=== PATIENT | female | born 1970 | race Caucasian/White ===

== ENCOUNTER 2018-06-15 05:21 | Day surgery (SDC) | payer OTHER ==
[2018-06-08 12:52] LABS: HEMATOCRIT 36.5 % (36.0-47.0); MEAN CORPUSCULAR HEMOGLOBIN 32.9 pg (27.0-33.4); MEAN CORPUSCULAR HGB CONC 35.5 g/dL (32.0-36.0); MEAN CORPUSCULAR VOLUME 93 fl (80-97); PLATELET COUNT 256 10^3/uL (150-450); RED BLOOD COUNT 3.95 10^6/uL (3.72-5.28); RED CELL DISTRIBUTION WIDTH 12.3 % (11.5-14.0); WHITE BLOOD COUNT 4.7 10^3/uL (4.0-10.5)
[2018-06-08 12:57] LABS: APPEARANCE,URINE CLEAR; BILIRUBIN,URINE NEGATIVE (NEGATIVE); COLOR,URINE YELLOW; GLUCOSE, URINE NEGATIVE (NEGATIVE); KETONES,URINE NEGATIVE (NEGATIVE); LEUKOCYTE ESTERASE,URINE NEGATIVE (NEGATIVE); NITRITE,URINE NEGATIVE (NEGATIVE); PROTEIN,URINE NEGATIVE (NEGATIVE); UROBILINOGEN,URINE NEGATIVE mg/dL (<2.0)
[~2018-06-15 05:21] MED LIST: LACTATED RINGERS 1000 ML IV PRN; LIDOCAINE 0.5% INJ-PF (5 MG/ML) 50 ML SDV SUBCUT PRN
[2018-06-15] MEDS ORDERED: SCOPOLAMINE HYDROBROMIDE 1.5 MG PATCH.TD72 ONE (06:28)
[2018-06-15] MEDS ORDERED: ONDANSETRON HCL INJ/PF 4 MG/2 ML SDV ONE (06:29)
[2018-06-15] MEDS ORDERED: SCOPOLAMINE HYDROBROMIDE 1.5 MG PATCH.TD72 TD ONE (07:00)
[2018-06-15] MEDS ORDERED: ONDANSETRON HCL INJ/PF 4 MG/2 ML SDV IV ONE (07:00)
[2018-06-15] MEDS ORDERED: FENTANYL CITRATE INJ/PF 100 MCG/2 ML AMPUL ONE (07:01)
[2018-06-15] MEDS ORDERED: LIDOCAINE 2% INJ (20 MG/ML) 20 ML MDV ONE (07:01)
[2018-06-15] MEDS ORDERED: MIDAZOLAM 2 MG/2 ML INJ ONE (07:02)
[2018-06-15] MEDS ORDERED: ACETAMINOPHEN 1,000 MG/100 ML RTUPB IV ONE (07:03)
[2018-06-15] MEDS ORDERED: PROPOFOL INJ 200 MG/20 ML VIAL IV ONE (07:03)
[2018-06-15] MEDS ORDERED: PROMETHAZINE HCL INJ 25 MG/1 ML VIAL ONE (07:14)
[2018-06-15] MEDS ORDERED: FENTANYL CITRATE INJ/PF 100 MCG/2 ML AMPUL IV PRN ×3 (07:40)
[2018-06-15] MEDS ORDERED: DIPHENHYDRAMINE HCL 50 MG/ML VIAL IV PRN (07:40)
[2018-06-15] MEDS ORDERED: PROMETHAZINE HCL INJ 25 MG/1 ML VIAL IV PRN (07:40)
[2018-06-15] MEDS ORDERED: ONDANSETRON HCL INJ/PF 4 MG/2 ML SDV IV PRN (07:40)
[2018-06-15] MEDS ORDERED: MEPERIDINE HCL/PF INJ 25 MG/1 ML DISP.SYRIN IV PRN (07:40)
[2018-06-15] MEDS ORDERED: MORPHINE SULFATE 10 MG/ML INJ IV PRN (07:40)
[2018-06-15] MEDS ORDERED: HYDROMORPHONE HCL 2 MG TABLET PO PRN (08:49)
[2018-06-15] MEDS ORDERED: ONDANSETRON HCL 8 MG TABLET PO PRN (08:50)
[2018-06-15 09:51] VITALS: BP 102/68
[2018-06-15] MEDS ORDERED: DEXAMETHASONE SOD PHOSPHATE INJ 4 MG/1 ML VIAL ONE (12:10)
[2018-06-15] MEDS ORDERED: KETOROLAC TROMETHAMINE 60 MG/2 ML SDV ONE (12:10)
[2018-06-15] MEDS ORDERED: IBUPROFEN 800 MG TABLET PO SCH (14:00)
--- NOTE | 2018-06-15 15:33 | OPERATIVE REPORT E ---
Operative Report NAME: NIKI DAILY : 1970 AGE: 47Y DATE OF SURGERY: 06/15/2018 ROOM: PREOPERATIVE DIAGNOSIS: MIREYA. POSTOPERATIVE DIAGNOSIS: MIREYA. OPERATION: TVT. ESTIMATED BLOOD LOSS: Less than 5 mL. SURGEON: Sudha BRIONES M.D. ANESTHESIA: General. TISSUE REMOVED OR ALTERED: None. PROCEDURE: The patient was placed in the dorsal lithotomy position, prepped and draped in sterile fashion. Vaginal mucosa was grasped below the urethra and with sharp dissection, vesicovaginal tissue was bluntly and sharply divided to the posterior aspect of the symphysis could be palpated. Two puncture wounds were made above the symphysis 1 cm lateral to the midline. The needles were passed down from the top and out through the vaginal defect. Cystoscopy was then performed with no foreign bodies being noted. The tape was then placed on both ends of the needles, pulled back through until it was placed under the urethra for tension-free placement. The defect was then closed with running suture of 2-0 Vicryl. The excess tape was severed at the skin and the punctures were closed using Dermabond. The patient tolerated the procedure well and was taken to recovery room in good condition. DICTATING PHYSICIAN: Sudha BRIONES M.D. [id number] PHY#: [id number] ID: [id number] JOB#: [id number] ACCT: [id number] cc:Sudha BRIONES M.D. >
== END 2018-06-15 09:54 | disposition home or self-care (01) ==
LOC: OROUT 05:21
PROVIDERS: ATTEND Obstetrics & Gynecology Gynecology
DX: N39.3 Stress incontinence (female) (male) (principal); E34.9 Endocrine disorder, unspecified; E55.9 Vitamin D deficiency, unspecified; Z88.5 Allergy status to narcotic agent; Z91.040 Latex allergy status; Z01.818 Encounter for other preprocedural examination; Z79.899 Other long term (current) drug therapy
CPT/HCPCS: 36415; 85027; 81025; 81001; 57288; C1781; J2250; J3490; J1100; J1885; J3010; J2550; J2405; J2704; J0131